=== PATIENT | female | born 1975 | race Caucasian/White ===

== ENCOUNTER 2017-12-10 02:57 | Emergency (ER) | payer OTHER ==
[~2017-12-10] VITALS: Ht 170.2 cm; Wt 64.9 kg
[2017-12-10] MEDS ORDERED: HYDROXYCHLOROQ200 M1 (03:11)
[2017-12-10] MEDS ORDERED: LEXAPRO 10 MG T10 M1 PO (03:12)
[2017-12-10] MEDS ORDERED: LITE COAT ASPI325 MG PO (03:12)
[2017-12-10] MEDS ORDERED: TRAMADOL 50 MG50 MG PO (03:12)
[2017-12-10 03:32] LABS: URINE BILIRUBIN NEGATIVE (Negative); URINE BLOOD NEGATIVE (Negative); URINE CLARITY CLEAR; URINE COLOR YELLOW; URINE GLUCOSE-RANDOM NEGATIVE (Negative); URINE KETONES NEGATIVE (Negative); URINE LEUKOCYTES-REFLEX NEGATIVE (Negative); URINE NITRITE-REFLEX NEGATIVE (Negative); URINE PROTEIN NEGATIVE (Negative); URINE UROBILINOGEN 0.2 E.U./dl (0.2-1.0)
[2017-12-10 03:37] LABS: ANION GAP 9 mmol/L (7-16); BUN 12 mg/dL (7-18); CALCIUM 8.2 mg/dL (8.5-10.1); CHLORIDE 104 mmol/L (98-107); CO2 27 mmol/L (21-32); CREATININE 1.3 mg/dL (0.6-1.3); GLUCOSE 99 mg/dL (70-99); POTASSIUM 3.7 mmol/L (3.5-5.1); SODIUM 140 mmol/L (136-145)
[2017-12-10 03:41] LABS: ABSOLUTE LYMPHOCYTES 2.5 thou/uL (0.8-5.3); ABSOLUTE NEUTROPHILS 4.1 thou/uL (1.6-8.1); HEMOGLOBIN 9.4 gm/dL (12.0-15.0); LYMPHOCYTES 33.4 %; MCH 19.9 pg (26.0-34.0); RDW-CV 15.8 % (10.5-14.5)
[2017-12-10 03:43] LABS: ALBUMIN 3.5 g/dL (3.4-5.0); ALKALINE PHOSPHATASE 57 U/L (46-116); LIPASE 112 U/L (73-393); SGOT 23 U/L (15-37); SGPT 25 U/L (30-65); TOTAL BILIRUBIN 0.6 mg/dL (<0.1-1.0); TOTAL PROTEIN 7.3 g/dL (6.4-8.2); TROPONIN-I LEVEL <0.06 ng/mL (<0.06)
[2017-12-10 03:47] LABS: ABSOLUTE BASOPHILS 0.1 thou/uL (0.0-0.2); ABSOLUTE EOSINOPHILS 0.2 thou/uL (0.0-0.7); ABSOLUTE MONOCYTES 0.5 thou/uL (0.0-1.2); BASOPHILS 1.5 %; EOSINOPHILS 2.9 %; HEMATOCRIT 31.6 % (37.0-47.0); MCHC 29.6 g/dL (28.0-37.0); MCV 67.3 fL (80.0-100.0); MONOCYTES 7.1 %; MPV 10.5 fl. (7.2-11.1); NUCLEATED RBCS 0 /100WBC; PLATELET COUNT* 274 thou/uL (150-400); POLYS 55.1 %; WBC 7.5 thou/uL (4.0-11.0)
[2017-12-10 07:47] LABS: HYPOCHROMASIA 3+; MICROCYTES 3+; PLATELET ESTIMATE ADEQUATE
[2017-12-10] MEDS ORDERED: CARAFATE 1 GM TA1 GM PO (08:54)
[2017-12-10 09:20] VITALS: BP 103/57
--- NOTE | 2017-12-11 16:58 | EKG ---
[place] [address] ELECTROCARDIOGRAM REPORT Name: JULIET RUFFINN Room: [facility]#: [id number] Admission: 12/10/17 Attend Phys: Discharge: 12/10/17 Date of : 73 Report #: [id number] THIS REPORT FOR: //name// [facility] ED Test Date: 2017-12-10 Test Time: 03:19:12 Pat Name: JULIET RUFFIN Department: Room: Gender: F Manager Academic: KELLEY : 1975 Requested By: Kuldip Espinosa Order Number: [id number] MD: Lucho Buck Measurements Intervals [place] Rate: 76 P: 40 [place]: 137 QRS: 39 QRSD: 109 T: 50 QT: 360 QTc: 405 Interpretive Statements Sinus rhythm RSR' in V1 or V2, right VCD or RVH Baseline wander in lead(s) V3 No previous ECG available for comparison Electronically Signed On 12-11-2017 16:58:14 CDT by Lucho Buck [email or web address] <ELECTRONICALLY SIGNED> By: Lucho Buck MD, [facility] 12/11/17 1658 Lucho Buck MD, FACC /EPI
== END 2017-12-10 09:21 | disposition home or self-care (01) ==
LOC: M.ERS 02:57
PROVIDERS: Emergency Medicine Emergency Medical Services
DX: R10.11 Right upper quadrant pain (principal); G43.909 Migraine, unspecified, not intractable, without status migrainosus; Z88.1 Allergy status to other antibiotic agents; Z88.8 Allergy status to other drugs, medicaments and biological substances